=== PATIENT | female | born 1975 | race Caucasian/White ===

== ENCOUNTER 2016-12-08 16:10 | Emergency (ER) | payer OTHER ==
[~2016-12-08] VITALS: Ht 162.6 cm; Wt 85.3 kg
[~2016-12-08 16:10] MED LIST: ATIVAN0.5 M1 PO; BLM PO; FLEXERIL10 MG PO; OLANZAPINE5 MG PO; ZOFRAN ODT4 M1 SL; ZOFRAN ODT4 MG SL; ZOLPIDEM TARTRAT5 MG PO
[2016-12-08] MEDS ORDERED: HCG SL (17:26)
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
[2016-12-08 18:29] VITALS: BP 118/73
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
[2016-12-08] MEDS ORDERED: CYCLOBENZAPRINE10 M1 PO (19:15)
[2016-12-08] MEDS ORDERED: IBUPROFEN800 M1 PO (19:15)
== END 2016-12-08 19:45 ==
LOC: ERH 16:10
DX: S49.92XA Unspecified injury of left shoulder and upper arm, initial encounter (principal); V89.2XXA Person injured in unspecified motor-vehicle accident, traffic, initial encounter; Y93.9 Activity, unspecified; Y92.9 Unspecified place or not applicable
CPT/HCPCS: 72050; 73030-LT; 96372; J1885

== ENCOUNTER 2018-03-19 19:45 | Emergency (ER) | payer OTHER ==
[~2018-03-19 19:45] MED LIST changes: +CYCLOBENZAPRINE10 M1 PO; +HCG SL; +IBUPROFEN800 M1 PO
[2018-03-19 20:13] LABS: ABSOLUTE BASOPHIL COUNT 0 /CUMM (0.0-0.2); ABSOLUTE EOSINOPHIL COUNT 0.1 /CUMM (0.0-0.7); ABSOLUTE LYMPH COUNT 2.6 /CUMM (1.2-3.4); ABSOLUTE MONOCYTE COUNT 0.4 /CUMM (0.10-0.60); BASOPHIL % 0.4 % (0.0-2.0); GRANULOCYTE % 55.5 % (42.2-75.2); HEMATOCRIT 41.5 % (37-47); MEAN CORPUSCULAR HGB 35.3 PG (27.0-31.0); MEAN CORPUSCULAR HGB CONC 33.9 G/DL (33.0-37.0); MEAN CORPUSCULAR VOLUME 104.1 FL (81.0-99.0); MEAN PLATELET VOLUME 8.5 FL (7.4-10.4); PLATELET COUNT 313 /CUMM (130-400); RBC DISTRIBUTION WIDTH 14.4 % (11.5-14.5); RED BLOOD CELL CT 3.98 /CUMM (4.20-5.40); WHITE BLOOD CELL COUNT 7.2 /CUMM (4.8-10.8)
--- NOTE | 2018-03-19 20:59 | ED PSYCHIATRIC COMPLAINT ---
History of Present Illness General Chief Complaint: Psychiatric Related Complaint Stated Complaint: "I AM HAVING A BREAKDOWN" DENIES SI/HI Source: patient, family, old records Exam Limitations: no limitations Vital Signs & Intake/Output Vital Signs & Intake/Output Vital Signs Date Time Temp Pulse Resp B/P B/P Pulse O2 O2 Flow FiO2 Mean Ox Delivery Rate 03/19 2100 97.7 92 18 122/84 98 Room Air 03/19 1959 102 20 126/83 98 Allergies Coded Allergies: venom-honey bee (bee venom (honey bee)) (Severe, ANAPHYLAXIS 04/30/16) Reconcile Medications Cyclobenzaprine HCl 10 MG TABLET 1 TAB PO TID muscle relaxer Escitalopram Oxalate (Lexapro) 10 MG TABLET 1 TAB PO DAILY DEPRESISON [HCG] 10-15 DROP SL TID WEIGHT LOSS SUPPLEMENT (Reported) Ibuprofen 800 MG TABLET 1 TAB PO TID pain Lorazepam (Ativan) 0.5 MG TABLET 1 TAB PO BIDP PRN ANXIETY Olanzapine (Zyprexa) 5 MG TABLET 1 TAB PO QPM BIPOLAR Triage Note: PER PT WHO IS CRYING IN TRIAGE" I FEEL LIKE A PIECE OF SHIY AND NOT WORTH ANYTHING" DENIES SI HI LMP 03/06 Triage Nurses Notes Reviewed? yes : No Patient currently breastfeeds: No HPI: Patient brought in by her fianc for increasing anxiety. Patient feels that she is having a nervous breakdown. Patient was taking her medications until approximately 7 months ago when she stopped them because she states that she has been feeling fine for over a year. Patient did not feel that she needed her medications anymore. Patient denies any suicidal or homicidal ideations. Patient denies any hallucinations. Past History Travel History Traveled to [place] past 21 day No Medical History Any Pertinent Medical History? see below for history Neurological: NONE EENT: NONE Cardiovascular: NONE Respiratory: NONE Gastrointestinal: NONE Hepatic: NONE Renal: NONE Musculoskeletal: NONE Psychiatric: alcohol dependence, anxiety, depression Endocrine: NONE Surgical History Surgical History: non-contributory Psychosocial History Who do you live with Significant Other What is your primary language Albanian Tobacco Use: Current Not Daily Daily Tobacco Use Amount/Type: => 5 Cigarettes daily ETOH Use: heavy use Illicit Drug Use: denies illicit drug use Family History Hx Contributory? No Review of Systems Review of Systems Constitutional: Reports: no symptoms. EENTM: Reports: no symptoms. Respiratory: Reports: no symptoms. Cardiovascular: Reports: no symptoms. GI: Reports: no symptoms. Genitourinary: Reports: no symptoms. Musculoskeletal: Reports: no symptoms. Skin: Reports: no symptoms. Neurological/Psychological: Reports: see HPI, anxiety, depressed. Hematologic/Endocrine: Reports: no symptoms. Immunologic/Allergic: Reports: no symptoms. All Other Systems: Reviewed and Negative Physical Exam Physical Exam General Appearance: well developed/nourished, alert, awake, anxious, mild distress Head: atraumatic, normal appearance Eyes: Bilateral: PERRL, EOMI. Ears, Nose, Throat: normal pharynx, normal ENT inspection, hearing grossly normal Neck: normal inspection, supple, full range of motion Respiratory: normal breath sounds, chest non-tender, no respiratory distress, lungs clear Cardiovascular: regular rate/rhythm, normal peripheral pulses Gastrointestinal: normal bowel sounds, soft, non-tender, no organomegaly Extremities: normal range of motion Neurological/Psychiatric: no motor/sensory deficits, awake, alert, oriented x 3 Appearance/Memory/Insight: appropriate appearance, appropriate insight Behavoir/Eye Contact/Speech: cooperative, normal speech, good eye contact Thoughts/Hallucinations: normal thought pattern, no apparent hallucination Skin: intact, normal color, warm/dry SAD PERSONS Done? patient not suicidal Progress Differential Diagnosis: drug intoxication, drug overdose, drug withdrawal, electrolyte abnormality Plan of Care: Orders Procedure Date/time Status URINE DRUG SCREEN FOR ER ONLY 03/19 2006 Active HUMAN BETA HCG SCREEN 03/19 2006 Complete ETHANOL 03/19 2006 Complete COMPREHENSIVE METABOLIC PANEL 03/19 2006 Complete CBC WITHOUT DIFFERENTIAL 03/19 2006 Complete Laboratory Tests 03/19/18 2005: Anion Gap 15, Estimated GFR > 60, BUN/Creatinine Ratio 10.0, Glucose 96, Calcium 9.5, Total Bilirubin 0.3, AST 58 H, ALT 57 H, Alkaline Phosphatase 81, Total Protein 7.6, Albumin 4.3, Globulin 3.3, Albumin/Globulin Ratio 1.3, Total Beta HCG NEGATIVE, CBC w Diff NO MAN DIFF REQ, RBC 3.98 L, MCV 104.1 H, MCH 35.3 H , MCHC 33.9, RDW 14.4, MPV 8.5, Gran % 55.5, Lymphocytes % 36.1, Monocytes % 6.0 , Eosinophils % 2.0, Basophils % 0.4, Absolute Granulocytes 4.0, Absolute Lymphocytes 2.6, Absolute Monocytes 0.4, Absolute Eosinophils 0.1, Absolute Basophils 0, Serum Alcohol 267.0 Comments: Patient is with her fianc. Her fianc states that he is staying with her and he is going to keep a close eye on her. He has no concerns about taking her home tonight. He just feels that she needs to continue her medications and not stop them when she feels better. Departure Departure Disposition: HOME OR SELF CARE Condition: Stable Clinical Impression Primary Impression: Depression Referrals: Russ Elmore MD (PCP/Family) Additional Instructions: FOLLOW UP WITH IOP AND OR YOUR THERAPIST RETURN FOR ANY CONCERNS Please follow up as per recommendations of the clinician oncology. Call 211 or return immediately to the emergency department for any concerns of harming yourself, anyone else or for any other concerns. Departure Forms: Customer Survey General Discharge Information Prescriptions: Current Visit Scripts Olanzapine (Zyprexa) 1 TAB PO QPM #30 TAB Escitalopram Oxalate (Lexapro) 1 TAB PO DAILY #30 TAB Lorazepam (Ativan) 1 TAB PO BIDP PRN ANXIETY #20 TAB
[2018-03-19 21:00] VITALS: BP 122/84
[2018-03-19] MEDS ORDERED: ZYPREXA5 M1 PO (21:11)
[2018-03-19] MEDS ORDERED: ATIVAN0.5 M1 PO (21:11)
[2018-03-19] MEDS ORDERED: LEXAPRO10 M1 PO (21:11)
== END 2018-03-19 21:17 ==
LOC: ERH 19:45
PROVIDERS: Emergency Medicine
DX: F32.9 Major depressive disorder, single episode, unspecified (principal)
CPT/HCPCS: 80307; G0480